=== PATIENT | male | born 1955 | race Caucasian/White ===

== ENCOUNTER 2018-08-16 09:35 | Day surgery (SDC) | payer MEDICARE ==
[2018-08-16] MEDS ORDERED: SOD CHLORIDE 0.9% 1,000 ML IV (10:00)
[2018-08-16] MEDS ORDERED: CEFAZOLIN 2 GM/50 ML (PMX) 50 ML IVPB (10:00)
[2018-08-16 10:41] LABS: ADD MAN DIFF? NO
[2018-08-16 10:44] LABS: WHITE BLOOD COUNT 5.7 10^3/ul (4.8-10.8)
[2018-08-16 10:44] LABS: BASOPHILS % 0.5 % (0.0-2.0); EOSINOPHILS # 0.1 10^3/ul (0.0-0.5); EOSINOPHILS % 1.6 % (0.0-7.0); HEMATOCRIT 44.1 % (42.0-52.0); HEMOGLOBIN 14.4 g/dl (14.0-18.0); LYMPHOCYTES # 1.7 10^3/ul (0.8-2.9); LYMPHOCYTES % 29.9 % (15.0-51.0); MEAN CORPUSCULAR HEMOGLOBIN 30.9 pg (29.0-33.0); MEAN CORPUSCULAR HGB CONC 32.7 g/dl (32.0-37.0); MEAN CORPUSCULAR VOLUME 94.6 fl (82.0-101.0); MEAN PLATELET VOLUME 10.2 fl (7.4-10.4); MONOCYTE # 0.5 10^3/ul (0.3-0.9); MONOCYTES % 8.6 % (0.0-11.0); NEUTROPHIL # 3.4 10^3/ul (1.6-7.5); NEUTROPHILS % 58.9 % (39.0-77.0); PLATELET COUNT 227 10^3/UL (140-415); RED BLOOD COUNT 4.66 10^6/ul (4.70-6.10); RED CELL DISTRIBUTION WIDTH 14.2 % (11.5-14.5)
[2018-08-16 11:00] LABS: ALANINE AMINOTRANSFERASE 37 IU/L (13-69); ALBUMIN 4.3 g/dl (3.3-4.9); ALBUMIN/GLOBULIN RATIO 1.26; ALKALINE PHOSPHATASE 90 IU/L (42-121); ANION GAP 7 (5-13); ASPARTATE AMINO TRANSFERASE 34 IU/L (15-46); BILIRUBIN,INDIRECT 0.8 mg/dl (0-1.1); BILIRUBIN,TOTAL 0.8 mg/dl (0.2-1.3); BLOOD UREA NITROGEN 15 mg/dl (7-20); CALCIUM 9.8 mg/dl (8.4-10.2); CARBON DIOXIDE 28 mmol/L (21-31); CHLORIDE 109 mmol/L (97-110); CREATININE 1.07 mg/dl (0.61-1.24); Estimated GFR > 60 mL/min (>60); GLUCOSE 89 mg/dl (70-220); POTASSIUM 4.5 mmol/L (3.5-5.1); SODIUM 144 mmol/L (135-144); TOTAL PROTEIN 7.7 g/dl (6.1-8.1)
[2018-08-16] MEDS ORDERED: ROCURONIUM 50 MG INJ (14:40)
[2018-08-16] MEDS ORDERED: FENTAnyl 50 MCG/ML VIAL (14:40)
[2018-08-16] MEDS ORDERED: DEXAMETHASONE 4 MG/ML 5 ML INJ (14:40)
[2018-08-16] MEDS ORDERED: MIDAZOLAM 1 MG/ML 2 ML INJ (14:40)
[2018-08-16] MEDS ORDERED: ONDANSETRON 4 MG INJ (14:40)
[2018-08-16] MEDS ORDERED: GLYCOPYRROLATE 0.4 MG INJ (14:40)
[2018-08-16] MEDS ORDERED: CEFAZOLIN 1 GM INJ (14:40)
[2018-08-16] MEDS ORDERED: PROPOFOL 20 ML (14:40)
[2018-08-16] MEDS ORDERED: ROPIVACAINE 0.5 % 30 ML VIAL (14:46)
[2018-08-16] MEDS: BUPIVACAINE 0.25% (MPF) 30 ML INJ (14:47)
[2018-08-16] MEDS ORDERED: ALBUTEROL 0.083% (NEB) 2.5 MG/3 ML AMP HHN (15:30)
[2018-08-16] MEDS ORDERED: MEPERIDINE 25 MG INJ IV (15:30)
[2018-08-16] MEDS ORDERED: MIDAZOLAM 1 MG/ML 2 ML INJ IV (15:30)
[2018-08-16] MEDS ORDERED: FENTAnyl 50 MCG/ML VIAL IV ×3 (15:30)
[2018-08-16] MEDS ORDERED: HYDROmorphONE 1 MG/5 ML IV SYRINGE IV (15:30)
[2018-08-16] MEDS ORDERED: EPHEDrine SULFATE 50 MG/5 ML SYG IV (15:30)
[2018-08-16] MEDS ORDERED: ONDANSETRON 4 MG INJ IV (15:30)
[2018-08-16] MEDS ORDERED: TRIMETHOBENZAMIDE 100 MG/ML VIAL IM (15:30)
[2018-08-16] MEDS ORDERED: IPRATROPIUM (NEB) 0.5 MG/2.5 ML AMP HHN (15:30)
[2018-08-16] MEDS ORDERED: LABETALOL HCL 20MG INJ IV (15:30)
[2018-08-16] MEDS ORDERED: hydrALAzine 20 MG INJ IV (15:30)
[2018-08-16] MEDS ORDERED: DIPHENHYDRAMINE 50 MG INJ IV (15:30)
[2018-08-16] MEDS ORDERED: OXYCODONE/ACETAMINOPHEN (5/325) TAB PO ×2 (15:30)
[2018-08-16] MEDS ORDERED: SUGAMMADEX SODIUM 200 MG/2 ML VIAL IV (15:37)
[2018-08-16] MEDS ORDERED: HYDROCODONE/APAP (5/325) TAB PO (16:00)
[2018-08-16] MEDS: HYDROmorphONE 1 MG/5 ML IV SYRINGE IV ×3 (16:01→16:23)
== END 2018-08-16 17:16 | disposition home or self-care (01) ==
LOC: SDS 09:35
DX: K40.30 Unilateral inguinal hernia, with obstruction, without gangrene, not specified as recurrent (principal)
CPT/HCPCS: 49507; 80053; 85025; 93005